=== PATIENT | female | born 1955 | race Caucasian/White ===

== ENCOUNTER 2021-07-29 09:24 | Outpatient (CLI) | payer MEDICARE | END 2021-07-29 09:25 | disposition home or self-care (01) | LOC: CSHCT 09:24 | PROVIDERS: ATTEND Internal Medicine Gastroenterology | DX: R93.89 Abnormal findings on diagnostic imaging of other specified body structures (principal); R16.1 Splenomegaly, not elsewhere classified; N28.1 Cyst of kidney, acquired | CPT/HCPCS: 74160 ==